=== PATIENT | female | born 1965 | race Caucasian/White ===

== ENCOUNTER → 2017-05-14 | Outpatient (CLI) | payer BC ==
--- NOTE | 2017-05-15 09:11 | WWHP ---
CHIEF COMPLAINT: The patient is here for her routine gynecologic exam. HPI: This is a 52-year-old, G0 with LMP of 2010. She is status post laparoscopic supracervical hysterectomy in 2010 for endometriosis and uterine fibroids. She had one ovary removed at the time of the hysterectomy and the other ovary prior to the hysterectomy. The hysterectomy was benign. The patient is without gynecologic complaints and denies any postmenopausal bleeding. She states she has always had problems having PAP smears done because of discomfort. PAST MEDICAL HISTORY: Type 2 diabetes, arthritis, fatty liver and sphincter of Oddi dysfunction. Dr. Dixon is her primary care physician. MEDICATIONS: Glucophage 500 mg b.i.d., meloxicam 1 daily, hyoscyamine q.i.d. p.r.n. ALLERGIES: No known drug allergies. PAST SURGICAL HISTORY: Multiple laparotomies for endometriosis, unilateral oophorectomy by laparotomy, laparoscopic supracervical hysterectomy with unilateral oophorectomy in 2010. Colonoscopy in 2016 and this was her second one. PAST [employer] HISTORY: She has a long history of infertility and endometriosis. She also had uterine fibroids and polycystic ovarian syndrome. She is status post laparoscopic supracervical hysterectomy in 2010 and she has had bilateral oophorectomies performed on two separate occasions. SOCIAL HISTORY: She denies tobacco, alcohol and drug use. She has five adopted children. She works as a teachers aid and recess aid at [employer] FAMILY HISTORY: Father had MT, mother had type 2 diabetes and lung cancer. Grandmother had diabetes and uncles have had heart disease. REVIEW OF SYSTEMS: Weight has been stable. She denies respiratory or cardiac problems. She has had GI problems associated with her sphincter of Oddi dysfunction. PHYSICAL EXAM: Blood pressure 144/85, height 5 feet 10 inches, weight 275 pounds. Temperature 98.9, pulse 107. This is a well developed, obese white female who is alert and oriented x3 in no acute distress. HEENT is within normal limits. Neck is supple without mass or thyromegaly. Chest and lungs clear to auscultation. HEART: Mild tachycardia. Breasts are without mass or discharge. Axillary exam is negative for adenopathy. Back negative for cva tenderness. Abdomen is obese, soft, nontender without palpable masses. Pelvic Exam: External genitalia appears normal with minimal atrophy. Vaginal exam is limited since I was unable to insert the speculum beyond about 10 cm because of the patient's discomfort. The narrow Grave's speculum could not reach the cervix without the patient having discomfort. Small ( ) speculum was inserted entirely, but was not long enough to reach the cervix as well. PAP smear was taken from the back fo the vagina blindly since the cervix could not visualized. Bimanual examination was negative for mass or tenderness. There were no vaginal masses. The patient has a long vagina and no cervix was palpable. Rectovaginal exam was negative for mass or tenderness and is negative for occult blood. Extremities nontender. IMPRESSION: 1. A 52-year-old surgically menopausal female status post laparoscopic supracervical hysterectomy and bilateral oophorectomy. 2. Limited pelvic exam since I was unable to visualize her cervix because of discomfort with the speculum examination. She states she has been this way throughout her entire life and several doctors have had difficulty obtaining a PAP smear. 3. There are no visible abnormalities or palpable abnormalities on the limited pelvic examination. PLAN: 1. PAP smear was taken, but as above this was done blindly. 2. Self breast examination was discussed. 3. Mammogram is due and slip was given to the patient for this. 4. Osteoporosis prevention was discussed. 5. I have discussed with the patient the limitations of the examination. At this time i do not feel doing an examination under anesthesia is necessary; however, if abnormalities are noted on the PAP smear we can consider these types of options. 6. She will return in one year and p.r.n. EVA
== END | disposition home or self-care (01) ==
LOC: WWCWWP 10:34
PROVIDERS: ATTEND Obstetrics & Gynecology
DX: Z53.9 Procedure and treatment not carried out, unspecified reason (principal)

== ENCOUNTER → 2017-05-28 | Outpatient (CLI) | payer BC ==
--- NOTE | 2017-05-30 10:05 | MM ---
Reason for exam: screening (asymptomatic). Last mammogram was performed 2 years and 2 months ago. History: Patient is postmenopausal and is nulliparous. Taking estrogen for 1 year. Taking progesterone for 3 years 10 months beginning at age 42. Physical Findings: A clinical breast exam by your physician is recommended on an annual basis and results should be correlated with mammographic findings. MG Screening Mammo w CAD Bilateral CC and MLO view(s) were taken. Prior study comparison: April 01, 2015, bilateral MG screening mammo w CAD. June 08, 2014, bilateral MG screening mammo w CAD. March 04, 2013, bilateral digital screening mammo w/CAD. December 14, 2010, bilateral digital screening mammo w/CAD. The breast tissue is heterogeneously dense. This may lower the sensitivity of mammography. Scattered asymmetries are unchanged. No significant changes when compared with prior studies. ASSESSMENT: Negative, BI-RAD 1 RECOMMENDATION: Routine screening mammogram of both breasts in 1 year.
== END | disposition home or self-care (01) ==
LOC: RADMAMWWP 08:13
PROVIDERS: ATTEND Obstetrics & Gynecology
DX: Z12.31 Encounter for screening mammogram for malignant neoplasm of breast (principal)

== ENCOUNTER 2018-11-13 14:02 | Emergency (ER) | payer BC, OTHER ==
[2018-11-13 14:13] VITALS: RESP 18; TEMP 98.8
--- NOTE | 2018-11-13 14:37 | ED ---
General Adult HPI - General Chief complaint: Extremity Injury, Lower Stated complaint: IHS - left knee pain Time Seen by Provider: 11/13/18 14:12 Source: patient, RN notes reviewed, old records reviewed Mode of arrival: ambulatory Limitations: no limitations - History of Present Illness Initial comments: 53-year-old female patient with past medical history of type 2 diabetes presents to ED after sustaining a mechanical fall at work. Patient reports that she tripped over an outstretched leg and fell forward. Patient reports that she caught herself with her arms however sustained a trauma to her left knee. Patient reports that her knee was partially flexed when she fell to the ground. Patient primary complaint is left knee pain. Patient is ambulatory with pain in left knee. Patient denies any trauma to head and neck. Patient denies any use of blood thinners. Patient denies loss of consciousness. Patient denies any other complaints. Systemic: Pt denies fatigue, myalgia, fever/chills, rash. Pt denies weakness, night sweats, weight loss. Neuro: Pt denies headache, visual disturbances, syncope or pre-syncope. HEENT: Pt denies ocular discharge or irritation, otalgia, rhinorrhea, pharyngitis or notable lymphadenopathy. Cardiopulmonary: Pt denies chest pain, SOB, heart palpitations, dyspnea on exertion. Abdominal/GI: Pt denies abdominal pain, n/v/d. : Pt denies dysuria, burning w/ urination, frequency/urgency. Denies new onset urinary or bowel incontinence. MSK: Pt denies myalgia, loss of strength or function in extremities. Neuro: Pt denies new onset weakness, paresthesias. - Related Data Allergies Allergy/AdvReac Type Severity Reaction Status Date / Time No Known Allergies Allergy Verified 11/13/18 14:08 Review of Systems ROS Statement: Those systems with pertinent positive or pertinent negative responses have been documented in the HPI. ROS Other: All systems not noted in ROS Statement are negative. Past Medical History Past Medical History: GERD/Reflux History of Any Multi-Drug Resistant Organisms: None Reported Past Surgical History: Cholecystectomy, Hysterectomy Additional Past Surgical History / Comment(s): eye surgery, oophrectomy, complete hysterectomy Smoking Status: Never smoker Past Alcohol Use History: Rare Past Drug Use History: None Reported General Exam - General Exam Comments Initial Comments: Constitutional: NAD, AOX3, Pt has pleasant affect. HEENT: NC/AT, trachea midline, neck supple, no lymphadenopathy. Posterior pharynx non erythematous, without exudates. External ears appear normal, without discharge. Mucous membranes moist. Eyes PERRLA, EOM intact. There is no scleral icterus. No pallor noted. Cardiopulmonary: RRR, no murmurs, rubs or gallops, no JVD noted. Lungs CTAB in anterior and posterior contreras. No peripheral edema. Abdominal exam: Abdomen soft and non-distended. Abdomen non-tender to palpation in all 4 quadrants. Bowel sounds active in LLQ. No hepatosplenomegaly. No ecchymosis Neuro: CN II-XII intact. No nuchal rigidity. No focal deificit or facial droop. MSK: Psoas and quadriceps strength 5/5 bilaterally. Sensation intact. Posterior tibialis and dorsalis pedis pulse +2 bilaterally. Pt has mild tenderness to palpation over distal fibula. Pt knee is nontender to palpation. No cervical spinal tenderness. Thoracic and lumbar spine nontender to palpation. Para cervical, thoracic and lumbar non tender to palpation. No posterior calf tenderness bilaterally, homans sign negative bilaterally. Posterior tibialis and radial pulse +2 bilaterally. Sensation intact in upper and lower extremities. Full active ROM in upper and lower extremities, 5/5 stregnth. Limitations: no limitations Course Vital Signs 11/13/18 14:08 Temperature 98.8 F Pulse Rate 100 Respiratory 18 Rate Blood Pressure 161/84 O2 Sat by Pulse 95 Oximetry Medical Decision Making - Medical Decision Making 53-year-old female patient with past medical history of type 2 diabetes presents to ED after sustaining a mechanical fall at work. Pt fell forward, caught herself with her arms however sustained a trauma to her left knee. Patient reports that her knee was partially flexed when she fell to the ground. Patient primary complaint is left knee pain. Patient is ambulatory with pain in left knee. Patient denies any trauma to head and neck. Patient denies any use of blood thinners. Patient denies any other complaints. Pt VSS. Physical exam displayed: Psoas and quadriceps strength 5/5 bilaterally. Sensation intact. Posterior tibialis and dorsalis pedis pulse +2 bilaterally. Pt has mild tenderness to palpation over distal fibula. Pt knee is nontender to palpation. No cervical spinal tenderness. Thoracic and lumbar spine nontender to palpation. Para cervical, thoracic and lumbar non tender to palpation. No posterior calf tenderness bilaterally, homans sign negative bilaterally. Posterior tibialis and radial pulse +2 bilaterally. Sensation intact in upper and lower extremities. Full active ROM in upper and lower extremities, 5/5 stregnth. Plain film of left knee and left tibia/fibula displayed medial patellofemoral compartment osteoarthritis. There is a small 6 mm wide focal concavity of the subchondral bone of the medial femoral condyle could represent a tiny insufficiency fracture osteochondral lesion. No other acute osseous abnormality seen in the L tibia/fibula. Findings explained to patient at length. Patient to be placed and left knee immobilizer and nonweightbearing until follow-up with orthopedics. Patient prescribed crutches. Patient to follow up with orthopedic surgery care physician in one to 2 days. Pain well controlled in ED with toradol. Patient denied need for outpatient analgesics, states that she will take Motrin at home if necessary. Patient to return to ED if condition worsens in any way. Case discussed at length with Dr. Silvestre. Disposition Clinical Impression: Knee pain, Knee contusion Disposition: HOME SELF-CARE Condition: Stable Instructions: Knee Pain (ED) Additional Instructions: Patient to adhere to previously discussed treatment plan and will take medication(s) as directed. Patient to follow up with PCP in 1-2 days. Patient to return to ED if symptoms do not improve. Is patient prescribed a controlled substance at d/c from ED?: No Referrals: Toño Dixon MD [Primary Care Provider] - 1-2 days Shaheen Troncoso MD [STAFF PHYSICIAN] - 1-2 days Time of Disposition: 15:38
[2018-11-13] MEDS ORDERED: KETOROLAC 60 MG/2 ML VIAL IM STA (15:06)
--- NOTE | 2018-11-13 15:09 | XR ---
EXAMINATION TYPE: XR knee 4V LT, XR tibia fibula 2 views LT DATE OF EXAM: 11/13/2018 COMPARISON: NONE HISTORY: 53 year-old female left knee pain after fall FINDINGS: Left knee: Small knee joint effusion. Extensor mechanism is intact. Mild degenerative spurring patellofemoral co mpartment and additional degenerative spurring in the medial compartment. There is a small 6 mm wide area of focal concavity along the mid peripheral aspect of the medial femoral condyle. Otherwise, no other acute fracture, subluxation, or dislocation is seen. Left tibia/fibula: No acute fracture or dislocation. Os trigonum incidentally noted posterior ankle along with a moderat e-sized plantar calcaneal spur. IMPRESSION: 1. Left knee: Medial and patellofemoral compartment osteoarthrosis. There is a small 6 mm wide focal concavity of the subchondral bone of the medial femoral condyle that could represent a tiny insuffici ency fracture or osteochondral lesion. No other acute osseous abnormality seen. MRI if indicated. 2. Left tibia/fibula: No acute osseous abnormality seen.
[2018-11-13 15:59] VITALS: BP 143/80; PULSE 92
== END 2018-11-13 15:57 | disposition home or self-care (01) ==
LOC: EC 14:02
DX: S80.02XA Contusion of left knee, initial encounter (principal); M17.12 Unilateral primary osteoarthritis, left knee; E11.9 Type 2 diabetes mellitus without complications; W19.XXXA Unspecified fall, initial encounter; Y92.69 Other specified industrial and construction area as the place of occurrence of the external cause; Y99.0 Civilian activity done for income or pay
CPT/HCPCS: 73590; 73564; 99284; 96372; L1830 ×2; J1885

== ENCOUNTER → 2018-11-17 | Outpatient (CLI) | payer OTHER ==
--- NOTE | 2018-11-17 20:18 | XR ---
PROCEDURE: XR thoracic spine complete - 4V DATE AND TIME: 11/17/2018 7:36 PM CLINICAL INDICATION: PHH; FALL TECHNIQUE: Department protocol COMPARISON: None FINDINGS: Lower thoracic dextrocurvature noted, this could be positional. There is no fracture or malalignment. The soft tissues are unremarkable. IMPRESSION: NO ACUTE PROCESS.
--- NOTE | 2018-11-17 20:31 | XR ---
PROCEDURE: XR cervical spine comp - 5V DATE AND TIME: 11/17/2018 7:30 PM CLINICAL INDICATION: PHH; FALL TECHNIQUE: Department protocol COMPARISON: None FINDINGS: There is no fracture or malalignment. Prominent multilevel cervical spondylosis changes are noted. The soft tissues are unremarkable. IMPRESSION: NO ACUTE PROCESS.
== END | disposition home or self-care (01) ==
LOC: RADXRMAIN 19:06
PROVIDERS: ATTEND Family Medicine
DX: S13.4XXA Sprain of ligaments of cervical spine, initial encounter (principal); S23.3XXA Sprain of ligaments of thoracic spine, initial encounter
CPT/HCPCS: 72050; 72072

== ENCOUNTER → 2019-05-19 | Outpatient (CLI) | payer BC ==
--- NOTE | 2019-05-19 22:30 | CONS ---
CONSULTATION REASON FOR CONSULTATION: Sleep apnea. This is a 54-year-old obese female patient who is coming in with symptoms of loud snoring, witnessed apneas, sleep fragmentation and chronic hypersomnia and sleepiness. The patient is also having episodes where she wakes up gasping for air. She has been going to bed around 9 p.m., waking up at 7:30 a.m. in the morning. She is somnolent and sleepy during the day. Her current [place] Score is 16. She has not fallen asleep while driving, nor has she been involved in a motor vehicle accident because of feeling drowsy or sleepy. She drinks coffee, 2 cups in the morning. Her weight is up on the order of 80 pounds over the past 5 years at least. She is coming in for sleep apnea evaluation. Her has obstructive sleep apnea. He utilizes a CPAP unit. PAST MEDICAL HISTORY: 1. Diabetes mellitus. 2. Obesity. 3. Acid reflux. PAST SURGICAL HISTORY: 1. Eye surgery. 2. Surgery for meniscal repair. 3. Cholecystectomy. 4. Hysterectomy. DRUG ALLERGIES: NOT KNOWN. OUTPATIENT MEDICATION: 1. Metformin. 2. Wellbutrin. 3. Omeprazole. 4. Magnesium citrate. SOCIAL HISTORY: Nonsmoker. No history of alcoholism. No history of IV drugs. FAMILY HISTORY: Negative for sleep apnea. REVIEW OF SYSTEMS: Fourteen-point review of systems was done and the positive findings are all mentioned above in the history of present illness. No sleep paralysis. No hallucinations. No cataplexy. No insomnia. No nocturia. No grinding of the teeth. No panic attacks. No palpitation. No heartburn. No sleepwalking or sleeptalking. No claustrophobia. No anxiety. No sexual dysfunction. No depression. PHYSICAL EXAMINATION: VITAL SIGNS: BP is 158/81, pulse 101, respirations 16, temperature 98.2, saturation 98% on room air. Neck size is 18 inches. [place] score is 16. BMI 47.4. GENERAL APPEARANCE: Calm, comfortable. Head is atraumatic, normocephalic. NECK: Supple. There is no JVD. No goiter or neck masses. Mallampati class IV. LUNGS: Clear to auscultation. HEART: Heart sounds are regular rate and rhythm. Normal S1, S2. No S3, S4. No murmurs. ABDOMEN: Soft, nontender. No organomegaly. EXTREMITIES: No edema. No cyanosis or clubbing. Neurologically the patient is awake and alert, in no focal neurological deficits. IMPRESSION: 1. Hypersomnia; Rich[place] score of 16. Clinical features are very much suggestive of obstructive sleep apnea. The patient has loud snoring witnessed apneas and sleep fragmentation. 2. Obesity with a body mass index of 47.4. 3. Diabetes mellitus. 4. Acid reflux. PLAN: High clinical suspicion for obstructive sleep apnea. Proceed with a home sleep study and treatment is to follow accordingly. Encourage weight loss. Optimize sleep hygiene measures. Will continue to follow. MMODL / IJN: [id number] /
== END | disposition home or self-care (01) ==
LOC: SLEEP 16:29
PROVIDERS: ATTEND Internal Medicine Critical Care Medicine
DX: G47.10 Hypersomnia, unspecified (principal); E66.9 Obesity, unspecified; E11.9 Type 2 diabetes mellitus without complications; K21.9 Gastro-esophageal reflux disease without esophagitis; Z68.42 Body mass index [BMI] 45.0-49.9, adult; Z79.84 Long term (current) use of oral hypoglycemic drugs; Z79.899 Other long term (current) drug therapy
CPT/HCPCS: 99211

== ENCOUNTER → 2019-07-27 | Outpatient (CLI) | payer BC ==
--- NOTE | 2019-07-27 22:30 | MR ---
EXAMINATION TYPE: MR knee RT wo con DATE OF EXAM: 07/27/2019 COMPARISON: Outside right knee x-ray June 22, 2019. HISTORY: Rt knee pain/injury 3 mos ago TECHNIQUE: Multiplanar, multisequence images of the knee is performed without IV contrast. FINDINGS: Exam slightly suboptimal due to patient's large body habitus. MEDIAL MENISCUS: Anterior and posterior horns are intact without tear. LATERAL MENISCUS: Anterior and posterior horns are intact without tear. CRUCIATE LIGAMENTS: The anterior and posterior cruciate ligaments are intact and unremarkable. COLLATERAL LIGAMENTS: The medial collateral ligament and lateral collateral ligament complex are inta ct and unremarkable. EXTENSOR MECHANISM: Visualized quadriceps and patellar tendons are intact. EFFUSION: No significant suprapatellar joint effusion. POPLITEAL CYST: There is small popliteal/zamarripa cyst. TRICOMPARTMENT SPACES: Mild to moderate tricompartment joint space loss with mild spurring. CARTILAGE: Some thinning of articular cartilage medial tibial femoral compartment. BONE MARROW SIGNAL: No focal abnormal marrow signal is appreciated. OTHER: Increased edema superficial infrapatellar space.. IMPRESSION: No meniscal or ligamentous tear is seen. Mild to moderate tricompartment degenerative luann nges with small popliteal cyst.
== END | disposition home or self-care (01) ==
LOC: RADMRIMAIN 20:18
PROVIDERS: ATTEND Orthopaedic Surgery
DX: M17.11 Unilateral primary osteoarthritis, right knee (principal); M71.21 Synovial cyst of popliteal space [Baker], right knee

== ENCOUNTER → 2019-08-11 | Outpatient (CLI) | payer BC ==
--- NOTE | 2019-08-11 18:47 | PN ---
PROGRESS NOTE A 54-year-old female patient diagnosed having severe obstructive sleep apnea with an AHI of 103. She came in with excessive sleepiness and tiredness and she underwent a home sleep study that confirmed the findings. She was also having severe nocturnal oxygen desaturation where her pulse ox was dropping more than 90%. More than 50% of the time. As such, the patient was given APap and today she is coming in for a compliancy check. She notes marked improvement in her symptoms in general. She is benefiting from the treatment. She was feeling much more refreshed and alert during the day. She loves her machine. [place] score is down to 3. Based on the compliance data, the patient has used her APAP machine every night over the past 30 days. She has achieved 5.3 hours of APAP use per night and average pressure is at 17.9, AHI is down to 2.9. Leak is at 7 L/minute. Her blood pressure is under better control for now. She feels better in general. She is committed to lose weight. She has severe symptomatic obstructive sleep apnea. REVIEW OF SYSTEMS: Fourteen-point review of system was done. Positive findings are mentioned as above in the history of present illness. Overall condition is improving and the patient is improving and becoming much more alert and her sleep quality is also improving. She is currently using an AmaraView full-face mask. PHYSICAL EXAMINATION: Her BP is 152/94, pulse 102, respirations 16, temperature 97.0, saturation 99% on room air. Weight is 297 which is 6 pounds less compaired to her weight last month. General appearance: Calm, comfortable, obese. Head is traumatic, normocephalic. NECK: Supple. There is no JVD. No goiter or neck masses. LUNGS: Clear to auscultation. HEART: Heart sounds are regular rate and rhythm. Normal S1, S2. No S3. No murmurs. ABDOMEN: Soft, nontender. No organomegaly. EXTREMITIES: No edema. No cyanosis or clubbing. NEUROLOGIC: She is awake, alert, and no focal neurological deficits. PSYCHIATRIC: Negative for anxiety or depression. SKIN is negative for any wounds or ulceration. IMPRESSION: 1. Severe symptomatic obstructive sleep apnea with an AHI of 103. 2. Severe nocturnal oxygen desaturation. 3. Chronic hypersomnia improved with APAP therapy. [place] score is down to 3. 4. Morbid obesity. BMI of 47. 5. Diabetes. 6. Acid reflux. PLAN: 1. Continue APAP treatment. Minimum of 5, maximum of 20. The patient's average pressure is at 17. 2. The patient is using an Ebonie view full-face mask. Alternative masks and this can be considered F30 AirFit and the DreamWear under the nose and samples of both were given small size. 3. Encourage weight loss. 4. Implement good sleep hygiene measures. 5. See me back in a year's time in followup, earlier if needed. Treatment is successful for now. MMODL / IJN: [id number] /
== END | disposition home or self-care (01) ==
LOC: SLEEP 16:12
PROVIDERS: ATTEND Internal Medicine Critical Care Medicine
DX: G47.33 Obstructive sleep apnea (adult) (pediatric) (principal); E66.01 Morbid (severe) obesity due to excess calories; Z68.42 Body mass index [BMI] 45.0-49.9, adult; E11.9 Type 2 diabetes mellitus without complications; K21.9 Gastro-esophageal reflux disease without esophagitis; R53.83 Other fatigue; Z99.89 Dependence on other enabling machines and devices

== ENCOUNTER → 2019-08-12 | Outpatient (CLI) | payer BC ==
[2019-08-12 16:47] LABS: Basophils # (A) 0.1 k/uL (0-0.2); Basophils % (A) 1 %; Eosinophils # (A) 0.1 k/uL (0-0.7); Eosinophils % (A) 1 %; HCT 37.6 % (34.0-46.0); Hypochromasia Moderate; Lymphocytes # (A) 1.5 k/uL (1.0-4.8); Lymphocytes % (A) 22 %; MCHC 31.9 g/dL (31.0-37.0); MCV 78.4 fL (80.0-100.0); Mean Platelet Volume 6.8; Monocytes # (A) 0.5 k/uL (0-1.0); Monocytes % (A) 7 %; Neutrophils # (A) 4.6 k/uL (1.3-7.7); Neutrophils % (A) 66 %; Platelet Count 299 k/uL (150-450); RDW 15.9 % (11.5-15.5); WBC 6.9 k/uL (3.8-10.6)
== END | disposition home or self-care (01) ==
LOC: LABWHC1 14:20
PROVIDERS: ATTEND Orthopaedic Surgery
DX: Z01.818 Encounter for other preprocedural examination (principal); Z01.812 Encounter for preprocedural laboratory examination; M23.91 Unspecified internal derangement of right knee
CPT/HCPCS: 85025; 93005

== ENCOUNTER 2019-08-14 07:08 | Day surgery (SDC) | payer BC ==
[2019-08-13 08:49] VITALS: BMI 43.8
--- NOTE | 2019-08-13 10:51 | HP ---
HISTORY AND PHYSICAL CHIEF COMPLAINT: Right knee pain. 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 She notes giving way along with anterior and medial pain with swelling. She has increased pain with prolonged weightbearing activities. She has tried anti-inflammatories in addition to a previous injection with only partial temporary relief. PAST MEDICAL HISTORY: Significant for depression, type 2 diabetes, and hypertension. PAST SURGICAL HISTORY: Significant for previous left knee arthroscopy. CURRENT MEDICATIONS: 1. Celexa. 2. Glucophage. 3. Omeprazole. 4. Wellbutrin. ALLERGIES: She denies drug allergies. FAMILY HISTORY: Significant for heart disease and cancer. SOCIAL HISTORY: Negative for current tobacco or alcohol use. REVIEW OF SYSTEMS: Sixteen-point review of systems otherwise reviewed and is noncontributory. PHYSICAL EXAMINATION: On examination, the patient is approximately 5 feet 9 inches, 300 pounds of endomorphic habitus. HEENT exam is nonfocal. Neck is supple. She has painless passive motion of the right hip. Straight leg raise is negative. Active motion right knee -8 to 105 degrees of flexion. She has a mild effusion. She is tender about the medial and lateral joint line. Collaterals are stable, Myke is negative, and Constance's elicits medial pain. Her distal neurovascular exam appears intact in the right lower extremity. MRI report 07/27/2019 shows evidence of increased signal involving the posterior horn of the medial meniscus along with [id number] tricompartmental osteoarthrosis. IMPRESSION: 1. Right knee internal derangement with possible medial meniscal tear. 2. Right knee [id number] tricompartmental osteoarthrosis. 3. Obesity. RECOMMENDATIONS: I talked to the patient at length regarding her condition along with treatment options. At this point, she is having persistent pain and mechanical symptoms that limit her despite conservative measures. After thorough discussion, she opts to proceed with surgery. We will plan to proceed with right knee arthroscopic evaluation with possible partial medial meniscectomy versus medial femoral chondrectomy. Risks and benefits were discussed at length in layman's terms. We will likely perform that as an outpatient procedure. MMODL / IJN: [id number] /
[~2019-08-14 07:08] MED LIST: DEXAMETHASONE SOD PHOSPHATE 10 MG/ML 1 ML VIAL IV ONE; FAMOTIDINE 20 MG/2 ML VIAL IV PRN; LACTATED RINGERS 1,000 ML IV SCH; MIDAZOLAM 2 MG/2 ML VIAL IV PRN; ONDANSETRON 4 MG/2 ML VIAL IVP PRN; ceFAZolin 3 GM in SODIUM CHLORIDE 0.9% 100 ML IVPB ONE
[2019-08-14] MEDS ORDERED: LIDOCAINE 1% 20 ML VIAL (10MG/ML) FOR IV START INTRADERMA ONE (07:35)
[2019-08-14] MEDS ORDERED: SCOPOLAMINE 1.5MG/72HR PATCH TRANSDERM ONE (07:39)
[2019-08-14 07:41] LABS: Glucose,Whole Blood 91 mg/dL (75-99)
[2019-08-14] MEDS ORDERED: MIDAZOLAM 2 MG/2 ML VIAL ONE (08:10)
[2019-08-14] MEDS ORDERED: PHENYLEPHRINE-0.9% NACL SYG 1 MG/10 ML SYRINGE ONE (08:10)
[2019-08-14] MEDS ORDERED: LIDOCAINE 1% INJ 10MG/ML (20 ML MDV) ONE (08:10)
[2019-08-14] MEDS ORDERED: SUCCINYLCHOLINE CHLORIDE 100 MG/5 ML SYR IV ONE (08:10)
[2019-08-14] MEDS ORDERED: PROPOFOL 10 MG/ML 20 ML VIAL IV ONE (08:10)
[2019-08-14] MEDS ORDERED: fentaNYL (PF) 50 MCG/ML 2 ML AMP ONE (08:10)
[2019-08-14] MEDS ORDERED: ceFAZolin 1,000 MG VIAL IVPB ONE (08:15)
[2019-08-14] MEDS ORDERED: EPINEPHrine (PF) 1 ML in SODIUM CHLORIDE 0.9% IRRIGATIO 3,000 ML IRRIGATION ONE (08:36)
--- NOTE | 2019-08-14 09:03 | P.OP ---
Date of Procedure: 08/14/19 Preoperative Diagnosis: Right knee internal derangement Postoperative Diagnosis: Right knee posterior medial meniscal tear/grade 3 chondral injury distal medial femoral condyle Procedure(s) Performed: Right knee arthroscopic partial medial meniscectomy/medial femoral chondrectomy/microfracture medial femoral condyle Anesthesia: SERGEYA Surgeon: Shaheen Troncoso Estimated Blood Loss (ml): 10 Pathology: none sent Condition: stable Disposition: PACU Indications for Procedure: The patient's 54-year-old female who presents with progressive right knee pain and mechanical symptoms despite conservative measures. A discussion of the risks and benefits of operative intervention versus continued conservative measures was made with the patient. She opted to proceed with surgery. Operative risks to include infection, neurovascular injury, development of blood clots, possible incomplete resolution of symptoms, possible worsening symptoms and need for subsequent procedures was discussed. Informed consent was obtained. Operative Findings: As below Description of Procedure: The patient was brought to the operating room, and after induction of general anesthesia examined the right knee. Collaterals were stable, Myke was negative, and posterior drawer was negative. The right lower extremity was prepped and draped in a normal fashion. A lateral portal was made through a 5 mm vertical skin incision lateral to the patella tendon above the joint line. Diagnostic arthroscopy was performed. On inspection of the medial compartment, and oblique tear involving the posterior horn of the medial meniscus in the white-red junction was noted. This was debrided back to stable base with straight baskets and a motorized shaver. A corresponding grade 3 chondral injury was noted involving the distal medial femoral condyle. There was a loose chondral fragment debrided back to stable base with a motorized shaver. Microfracture was performed with a chondral all breeching the subchondral surface down to the bone marrow elements. On inspection of the notch, the anterior cruciate ligament appeared to be intact. On inspection of the lateral compartment no significant meniscal or cartilage pathology was noted. On inspection of the patellofemoral articulation there was chondral fibrillation however no loose chondral fragments.. The gutters were clear debris. The knee was then thoroughly irrigated. The portals were closed with Steri-Strips. A sterile dressing was applied in addition to a compression stocking. The patient was awoken from general anesthesia and transferred to recovery room in good condition. Blood loss was estimated at 10 mL. No complications were incurred.
[2019-08-14 09:16] VITALS: TEMP 97
[2019-08-14] MEDS: HYDROmorphone 0.5 MG/0.5 ML SYRINGE IVP PRN ×2 (09:20→09:30)
[2019-08-14 09:37] VITALS: RESP 16
[2019-08-14 10:06] LABS: Glucose,Whole Blood 107 mg/dL (75-99)
[2019-08-14] MEDS ORDERED: HYDROcodone/APAP 5-325MG 1 EACH TAB PO ONE (10:21)
[2019-08-14 10:51] VITALS: BP 131/79; PULSE 98
== END 2019-08-14 11:21 | disposition home or self-care (01) ==
LOC: OR 07:08
PROVIDERS: ATTEND Orthopaedic Surgery
DX: S83.241A Other tear of medial meniscus, current injury, right knee, initial encounter (principal); S83.31XA Tear of articular cartilage of right knee, current, initial encounter; X58.XXXA Exposure to other specified factors, initial encounter; M17.11 Unilateral primary osteoarthritis, right knee; E66.01 Morbid (severe) obesity due to excess calories; Z68.41 Body mass index [BMI] 40.0-44.9, adult; K21.9 Gastro-esophageal reflux disease without esophagitis; I10 Essential (primary) hypertension; G25.81 Restless legs syndrome; F32.9 Major depressive disorder, single episode, unspecified; E11.9 Type 2 diabetes mellitus without complications; G47.33 Obstructive sleep apnea (adult) (pediatric); Z82.49 Family history of ischemic heart disease and other diseases of the circulatory system; Z79.84 Long term (current) use of oral hypoglycemic drugs; Z79.899 Other long term (current) drug therapy
CPT/HCPCS: 29881; 29879; J2250; J1100; J0690; J0171; J2001; J3010; J2370; J0330; J2704; J1170

== ENCOUNTER → 2019-08-27 | Outpatient (CLI) | payer BC ==
--- NOTE | 2019-08-28 13:40 | MM ---
Reason for exam: screening (asymptomatic). Last mammogram was performed 2 years and 3 months ago. History: Patient is postmenopausal and is nulliparous. Taking estrogen for 1 year. Taking progesterone for 3 years 10 months beginning at age 42. Physical Findings: A clinical breast exam by your physician is recommended on an annual basis and results should be correlated with mammographic findings. MG 3D Screening Mammo W/Cad Bilateral CC, MLO, and XCCL view(s) were taken. Prior study comparison: May 28, 2017, bilateral MG screening mammo w CAD. April 01, 2015, bilateral MG screening mammo w CAD. The breast tissue is heterogeneously dense. This may lower the sensitivity of mammography. No significant changes when compared with prior studies. ASSESSMENT: Benign, BI-RAD 2 RECOMMENDATION: Routine screening mammogram of both breasts in 1 year.
== END | disposition home or self-care (01) ==
LOC: RADMAMWWP 16:28
PROVIDERS: ATTEND Family Medicine
DX: Z12.31 Encounter for screening mammogram for malignant neoplasm of breast (principal)
CPT/HCPCS: 77063; 77067

== ENCOUNTER → 2020-06-29 | Outpatient (CLI) | payer BC ==
--- NOTE | 2020-06-29 09:54 | US ---
EXAMINATION TYPE: US abdomen complete DATE OF EXAM: 06/29/2020 COMPARISON: NONE CLINICAL HISTORY: R94.5 Abnormal liver function test, R10.11. RUQ pain, elevated liver enzymes, godwin cystectomy EXAM MEASUREMENTS: Liver Length: 19.1 cm Gallbladder Wall: Surgically absent CBD: 0.9 cm Spleen: 12.3 cm Right Kidney: 11.9 x 4.5 x 5.4 cm Left Kidney: 13.0 x 5.0 x 4.7 cm Technical limitations due to patient's body habitus and large amount of overlying bowel content Pancreas: Obscured by bowel gas Liver: enlarged, attenuating, hypoechoic area noted = 3.7 x 2.7 x 3.6cm probable focal sparing Gallbladder: Surgically absent Evidence for sonographic Mcrae's sign: no CBD: appears wnl Spleen: appears wnl Right Kidney: no evidence of hydronephrosis Left Kidney: no evidence of hydronephrosis Upper IVC: wnl Abd Aorta: Obscured by overlying bowel gas The intrahepatic portion of the IVC and proximal abdominal aorta are within normal limits. Common bi le duct is unremarkable. The visualized portions of the pancreas are homogenous. The spleen is unre markable. Kidneys are symmetric and free of hydronephrosis. No renal lesions are seen. IMPRESSION: 1. Fatty liver with areas of focal fatty sparing.
== END | disposition home or self-care (01) ==
LOC: RADUSWWP 09:03
PROVIDERS: ATTEND Surgery Plastic and Reconstructive Surgery
DX: K76.0 Fatty (change of) liver, not elsewhere classified (principal)
CPT/HCPCS: 76700

== ENCOUNTER → 2024-05-22 | Outpatient (CLI) | payer BC ==
--- NOTE | 2024-05-27 06:19 | MR ---
EXAMINATION TYPE: MR hip LT wo con DATE OF EXAM: 05/22/2024 COMPARISON: Outside pelvic x-ray May 11, 2024 HISTORY: Left hip pain. Standard multiplanar, multisequence MRI departmental protocol Multiplanar, multisequence images of the pelvis focusing on the left hip were acquired without contra st. FINDINGS: Moderate narrowing in the right hip joint. There is more severe narrowing in the left hip j oint. Asymmetric moderate to large sized left hip joint effusion is seen. Loss of spherical shape to the left femoral head with serpiginous diminished T1 signal involving the left femoral head. Early he ight loss involving the superior aspect of left femoral head is noted. There is increased T2 signal i nvolving the proximal femur particularly the lateral head and femoral neck region. No groin hernia or adenopathy seen. Muscle bulk is maintained bilaterally. Urinary bladder appears within normal limits. Sigmoid colonic diverticula are seen. Uterus is presume d surgically absent. IMPRESSION: Advanced degenerative changes and MRI evidence of avascular necrosis in the left hip as detailed treasure rosas
== END | disposition home or self-care (01) ==
LOC: RADMRIMAIN 10:51
PROVIDERS: ATTEND Orthopaedic Surgery
DX: M16.12 Unilateral primary osteoarthritis, left hip (principal); M87.88 Other osteonecrosis, other site

== ENCOUNTER → 2024-08-10 | Outpatient (CLI) | payer BC | END | disposition home or self-care (01) | LOC: LABPAT 14:09 | PROVIDERS: ATTEND Orthopaedic Surgery | DX: Z01.812 Encounter for preprocedural laboratory examination (principal); M16.12 Unilateral primary osteoarthritis, left hip; Z22.322 Carrier or suspected carrier of Methicillin resistant Staphylococcus aureus | CPT/HCPCS: 36415; 86850; 86900; 86901; 87070 ==

== ENCOUNTER 2024-08-12 10:18 | Day surgery (SDC) | payer BC ==
[2024-08-06 14:33] VITALS: BMI 46.5
--- NOTE | 2024-08-10 08:31 | P.HPOR ---
History of Present Illness H&P Date: 08/10/24 Chief Complaint: Left hip pain The patient is a 59-year-old female who presents with increasing left hip pain for the past 6 months. She notes now she has a difficult time putting any weight on it. She has groin and thigh pain. She is having night symptoms. She tried therapy without any real relief. She's been taking [place] and Naprosyn. Review of Systems Per HPI Past Medical History Past Medical History: Blood Disorder, COPD, GERD/Reflux, GI Bleed, Hearing Disorder / Deafness, Hypertension, Osteoarthritis (OA), Pneumonia, Sleep Apnea/CPAP/BIPAP Additional Past Medical History / Comment(s): Current congestion from a cold. Hx Covid, chronic Pneumonia. 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 Iron Deficiency Anemia. "I have always been anemic but in Jun 2024 hemoglobin was 4.8, had 4 blood transfusions and an iron infusion, discovered I had a bleeding stomach ulcer due to taking Naproxen". Hx hypertension before adrenal gland was removed. CPAP use. Mild hearing loss. History of Any Multi-Drug Resistant Organisms: None Reported Past Surgical History: Cholecystectomy, Hysterectomy, Orthopedic Surgery Additional Past Surgical History / Comment(s): Eye surgery, oophrectomy, left adrenal gland removed, EGD, colonoscopy, left knee surgery. Past Anesthesia/Blood Transfusion Reactions: No Reported Reaction, Motion Sickness Smoking Status: Never smoker - Past Family History Mother Family Medical History: Cancer Additional Family Medical History / Comment(s): Lung cancer. Medications and Allergies Home Medications Medication Instructions Recorded Confirmed Type Ferrous Sulfate [Feosol] 325 mg PO DAILY 08/13/19 08/06/24 History Hydrocodone/Acetaminophen [[place] 1 each PO Q6HR PRN #21 tab 08/14/19 08/06/24 Rx 5-325] Citalopram Hydrobromide 40 mg PO QAM 08/06/24 08/06/24 History [Citalopram HBr] Elderberry Fruit [Elderberry] 350 mg PO DIRECTED 08/06/24 08/06/24 History Loratadine/Pseudoephedrine 1 tab PO QAM 08/06/24 08/06/24 History [Loratadine-D 24Hr Tablet] Mucinex(Unknown Dose) 1 tab PO DIRECTED 08/06/24 08/06/24 History Pantoprazole [Protonix] 40 mg PO QAM 08/06/24 08/06/24 History Allergies Allergy/AdvReac Type Severity Reaction Status Date / Time naproxen AdvReac GI Bleed Verified 08/06/24 14:23 Physical Examination - Hip left Gait: antalgic Tenderness with palpation: anterior Pain with motion: internal rotation and hip flexion ROM: flexion: 70 degrees ROM: internal rotation: 0 degrees (With pain) ROM: external rotation: 50 degrees Crepitus with motion: Yes Strength: extension: 5/5 Strength: abduction: 5/5 Tests: impingement tests: positive Results The patient is a well-developed well-nourished female approximately 5 foot 9, 300 pounds of endomorphic habitus. HEENT exam is nonfocal, neck is supple. She has limited passive motion of her left hip. She has an antalgic gait pattern. Her distal neurovascular exam appears intact in the left lower extremity. - Diagnostic results Hip x-ray: image reviewed (X-rays of the left hip obtained in the office show avascular necrosis involving the left femoral head with central collapse. 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 At this point she is quite symptomatic having progressive symptoms. A fter a thorough discussion she opts to proceed with surgery. We will plan to proceed with left total hip arthroplasty utilizing an anterior approach. Risks and benefits were discussed at length in layman's terms. We will institute DVT prophylaxis postoperatively.
[~2024-08-12 10:18] MED LIST changes: -DEXAMETHASONE SOD PHOSPHATE 10 MG/ML 1 ML VIAL IV ONE; -FAMOTIDINE 20 MG/2 ML VIAL IV PRN; +HYDROmorphone 0.5 MG/0.5 ML SYRINGE IVP PRN; -LACTATED RINGERS 1,000 ML IV SCH; +LIDOCAINE 1% (10MG/ML) FOR IV START INTRADERMA PRN; +MELOXICAM 7.5 MG TAB PO PRN; -MIDAZOLAM 2 MG/2 ML VIAL IV PRN; -ONDANSETRON 4 MG/2 ML VIAL IVP PRN; +TRANEXAMIC 1,000 MG/100ML-NACL 1,000 MG in SALINE 1 100ML.BAG IVPB PRN; -ceFAZolin 3 GM in SODIUM CHLORIDE 0.9% 100 ML IVPB ONE
[2024-08-12] MEDS: ACETAMINOPHEN TAB 500 MG TAB PO PRN (11:25)
[2024-08-12 11:49] LABS: Glucose,Whole Blood 96 mg/dL (70-110)
[2024-08-12] MEDS: LACTATED RINGERS 1,000 ML IV SCH (11:50)
[2024-08-12] MEDS: ONDANSETRON 4 MG/2 ML VIAL IVP ONE (11:51)
[2024-08-12] MEDS: DEXAMETHASONE SOD PHOSPHATE 4 MG/ML 1 ML VIAL IV ONE (11:51)
[2024-08-12] MEDS: FAMOTIDINE 20 MG/2 ML VIAL IV STA (11:56)
[2024-08-12] MEDS: IV FLUID CONTINUATION 1,000 ML IV ONE (11:57)
[2024-08-12] MEDS ORDERED: ALBUTEROL HFA INHALER INHALATION ONE (12:34)
[2024-08-12] MEDS ORDERED: fentaNYL (PF) 50 MCG/ML 2 ML AMP ONE (12:34)
[2024-08-12] MEDS ORDERED: LIDOCAINE 1% INJ 10MG/ML (20 ML MDV) ONE (12:34)
[2024-08-12] MEDS ORDERED: SUCCINYLCHOLINE CHLORIDE 200 MG/10 ML VIAL IV ONE (12:34)
[2024-08-12] MEDS ORDERED: ROPIVACAINE 5 MG/ML 30 ML VIAL ONE (12:34)
[2024-08-12] MEDS ORDERED: DEXAMETHASONE SOD PHOSPHATE 4 MG/ML 1 ML VIAL ONE (12:34)
[2024-08-12] MEDS ORDERED: GLYCOPYRROLATE 0.2 MG/ML 2 ML VIAL ONE (12:34)
[2024-08-12] MEDS ORDERED: TRANEXAMIC 1,000 MG/100ML-NACL PREMIX BAG ONE (12:34)
[2024-08-12] MEDS ORDERED: NEOSTIGMINE 1 MG/ML 10 ML VIAL ONE (12:34)
[2024-08-12] MEDS ORDERED: ROCURONIUM 10 MG/ML (5 ML VIAL) IV ONE (12:34)
[2024-08-12] MEDS ORDERED: PROPOFOL 10 MG/ML 20 ML VIAL IV ONE (12:34)
[2024-08-12] MEDS ORDERED: HYDROmorphone (PF) 1 MG/ML ONE (12:34)
[2024-08-12] MEDS: MIDAZOLAM 2 MG/2 ML VIAL IV ONE (12:37)
--- NOTE | 2024-08-12 12:37 | P.ANPRN ---
Procedure Note - Anesthesia - Nerve Block Performed Left Quoc Single Time Out Performed: Yes Date of Procedure: 08/12/24 Procedure Start Time: 12: Procedure Stop Time: : Location of Patient: PreOp Indication: Acute Post-Operative Pain, Analgesia, Requested by Surgeon Sedation Type: Sedate with meaningful contact maintained Preparation: Sterile Prep Position: Supine Catheter: None Needle Types: Pajunk Needle Gauge: 21 Ultrasound used to visualize needle placement: Yes Ultrasound used to observe medication spread: Yes Injectate: 0.5% Ropivacaine (see comment for volume) (Ropiv 20ml+Decadron 4mg . AttemptX1.) Blood Aspirated: No Pain Paresthesia on Injection Noted: No Resistance on Injection: Normal Image Stored and Saved: Yes Events: Uneventful and Well Tolerated
[2024-08-12] MEDS: ceFAZolin 3 GM in SODIUM CHLORIDE 0.9% 100 ML IVPB PRN (12:38)
[2024-08-12] MEDS: ceFAZolin 3,000 MG in SODIUM CHLORIDE 0.9% IRRIGATIO 3,000 ML IRRIGATION ONE (13:11)
[2024-08-12] MEDS ORDERED: MAGNESIUM HYDROXIDE 2,400 MG/30 ML CUP PO PRN (14:40)
[2024-08-12] MEDS ORDERED: NALOXONE 0.4 MG/ML 1 ML VIAL IV PRN (14:40)
[2024-08-12] MEDS ORDERED: ONDANSETRON 4 MG/2 ML VIAL IVP PRN (14:40)
[2024-08-12] MEDS ORDERED: HYDROcodone/APAP 5-325MG 1 EACH TAB PO PRN (14:40)
[2024-08-12] MEDS ORDERED: HYDROmorphone 0.5 MG/0.5 ML SYRINGE IVP PRN (14:40)
--- NOTE | 2024-08-12 15:09 | P.OP ---
Date of Procedure: 08/12/24 Preoperative Diagnosis: Left hip stage IV avascular necrosis Postoperative Diagnosis: Same Procedure(s) Performed: Left total hip arthroplastypress-fitanterior approach Implants: DePuy Corail size 13-125 degree press-fit collared femoral stem, 36+8.5 cobalt chrome femoral head, 52 mm [place] acetabular shell with neutral polyethylene liner, 6.5 mm x 30 mm cancellous screw. Anesthesia: JOLYNN regional Surgeon: Shaheen Troncoso Interface Designer #1: Antonio Diaz Estimated Blood Loss (ml): 300 Pathology: none sent Condition: stable Disposition: PACU Indications for Procedure: The patient is a 59-year-old female who presents with progressive left hip pain secondary to avascular necrosis. A discussion of the risks and benefits of operative intervention versus continued conservative measures was made with the patient. She opted to proceed with surgery. Operative risks include infection, neurovascular injury, development of blood clots, fracture, instability, leg length discrepancy, possible component loosening/failure and possible need for subsequent procedures was discussed. Informed consent was obtained. Operative Findings: As below Description of Procedure: The patient was brought to the operating room, and after induction of spinal anesthesia was placed supine on the Lissa table. Positioning was checked with fluoroscopy. The left hip was then prepped and draped in a normal fashion. A 12 cm incision was then made starting 2 fingerbreadths distal and 3 finger breaths posterior to the ASIS in line with the proximal femur. The skin was incised sharply. Subcutaneous tissues were divided sharply. Electrocautery was used for hemostasis. The fascia was split in line with skin incision. The interval between the sartorius and tensor fascia marcie was then bluntly developed. The posterior fascia was opened with electrocautery. The lateral circumflex vessels were identified and cauterized prior to sectioning. A retractor was placed along the superior femoral neck as well as the anterior acetabular rim. A wide capsulotomy was performed. The neck cut was then made at a 45 angle to the shaft approximately 1 1/2 cm above the level of the lesser trochanter. The head was extracted. Attention was then paid towards preparing the acetabular. Anterior and posterior retractors were placed. The remaining capsular labral tissue sharply debrided clearly defining the acetabular margins. I began reaming with a 47 mm reamer taking care to initially medialize then reaming at 45 of abduction and 20 of anteversion. Sequential reaming is performed up to 51 mm. A trial 52 mm acetabular shell was inserted in the same orientation and was fully seated. There was good rim fit and stability. Positioning was checked with fluoroscopy. The final 52 mm acetabular shell was inserted again at 45 of abduction and 20 of anteversion. This was fully seated. There was good rim fit and stability. A 6.5 x 30 mm posterior superior cancellous screw was used for additional fixation. Good purchase was obtained. Again fluoroscopy was used to check the adequacy of placement. A neutral polyethylene liner was gently impacted. Care was taken to avoid any soft tissue interposition. Pulsatile lavage was utilized. Attention was then paid towards preparing the proximal femur. The central region was cleared of soft tissue. A canal finder was used to find the femoral canal. Sequential broaching was performed up to size 13 taking care to lateralize proximally. A calcar mill was used to fashion the medial calcar. There was good rotational stability. A 125 degree neck along with a 36 mm +8 head was placed. The hip was gently reduced. Fluoroscopy was used to check the adequacy of positioning along with leg lengths. I felt both were good. The hip was gently dislocated. The trial components were removed. The final size 13 collared 125 degree press-fit femoral stem was inserted parallel to the posterior cortex. This was fully seated and there was good rotational stability. A 36 mm +8.5 head was placed. This was gently impacted. The hip was then gently reduced. Final fluoroscopic view showed adequate placement implant along with latter day of leg length. Stability was checked with 80 of external rotation and 60 of extension of the right hip. The wound was irrigated with sterile lavage. The fascia was closed with running 0 Vicryl suture. There was minimal drainage therefore a deep drain was not placed. The second dose of IV TXA was given. The subcutaneous tissues were reapproximated interrupted 2-0 Vicryl sutures. The skin was reapproximated with 3-0 subcuticular strata fix suture. Skin tape and adhesive was applied. A sterile dressing was applied. The patient was then awoken from sedation and t ransferred to recovery room in good condition. Blood loss was estimated at 300mL. No complications were incurred. Sponge and needle counts were correct at the end of the case. Antonio FARIAS assisted during the major components is case to include exposure, bone resection, implantation, and closure.
--- NOTE | 2024-08-12 15:24 | FL ---
EXAMINATION TYPE: FL guidance operating room, XR Hip Limited LT DATE OF EXAM: 08/12/2024 2:41 PM COMPARISON: Pre Operative Images if available both CT/MRI or plain film CLINICAL INDICATION: Female, 59 years old with history of Left Hip-Ant; TECHNIQUE: FL guidance operating room, XR Hip Limited LT, multiple fluoroscopic images provided for p rocedure. Total fluoroscopy time: 34 seconds Total submitted images to PACS: 6 DAP: 3.7826 mGym2 Gycm2 uGym2 cGycm2 or equivalent. FINDINGS: Fluoroscopic images during internal fixation/arthroplasty demonstrate fixation hardware in appropriat e position. Hardware appears intact. No immediate complication identified. IMPRESSION: 1. No evidence for intraoperative complication. 2. Please see the operative/procedural note for further details. [facility], , 08/12/2024 3:22 PM
[2024-08-12] MEDS: LACTATED RINGERS 1,000 ML IV ONE (15:42)
--- NOTE | 2024-08-12 16:05 | XR ---
EXAMINATION TYPE: XR Hip Limited LT DATE OF EXAM: 08/12/2024 3:58 PM CLINICAL INDICATION: Female, 59 years old with history of Status post hip surgery, assess surgical al ignment; [facility] COMPARISON: None. TECHNIQUE: XR Hip Limited LT; hip was examined in the frontal projections FINDINGS: Post arthroplasty changes, hardware is intact, alignment is appropriate. No evidence of fra cture. Postoperative changes of the soft tissues with subcutaneous gas. No evidence of any acute osse ous pathology or joint dislocation. IMPRESSION: Hip arthroplasty with hardware intact and in appropriate alignment. No acute fracture. [facility], , 08/12/2024 4:02 PM
[2024-08-12] MEDS: HYDROmorphone 1 MG/ML 1 ML SYRINGE IVP PRN (16:59)
[2024-08-12] MEDS: droPERidol 5 MG/2 ML VIAL IVP ONE (18:30)
[2024-08-12] MEDS: SENNOSIDES-DOCUSATE SODIUM 1 EACH TAB PO SCH (20:33)
--- NOTE | 2024-08-12 20:44 | P.CONS ---
History of Present Illness - Reason for Consult Consult date: 08/12/24 Medical management - History of Present Illness Patient is a 59-year-old female who has hypertension, COPD (not on home oxygen), anxiety, depression, GERD, osteoarthritis, EDWARD (with CPAP use at home), JESSICA that is status post left total hip arthroplasty for stage IV vascular necrosis of the femur. She has no new complaints at this time. She reported she has been able to micturate, passed flatus, has burping and ambulate with assistance but has not been able to have a bowel movement. She denies fever, sweats, chest pain, cough, shortness of breath, leg pain, abdominal pain, changes in vision, or focal weakness. Review of systems: Pertinent positives and negatives as discussed in HPI, a complete review of systems was performed and all other systems are negative. Physical examination: Vital signs reviewed General: non toxic, no distress, appears at stated age, on nasal cannula Derm: no unusual rashes/lesions, warm Head: atraumatic, normocephalic, symmetric Eyes: EOMI, anicteric sclera, pupils equal round reactive to light ENT: Nose and ears atraumatic Neck: No cervical lymphadenopathy, trachea midline, supple Mouth: no lip lesion, mucus membranes moist Cardiovascular: S1S2 reg, no murmur Lungs: CTA bilateral, no rhonchi, no rales, no accessory muscle use Abdominal: soft, nondistended, nontender to palpation, no guarding Ext: muscle strength 5 out of 5 in all 4 distal lower extremities grossly, no gross muscle atrophy, no contractures, positive dorsalis pedis pulse bilateral, no edema Neuro: CN II-XI grossly intact, no gross focal neuro deficits Psych: Alert, oriented, appropriate affect and mood Assessment/Plan: EDWARD (with CPAP use at home) Patient stable and asymptomatic. -Continue CPAP use -Supplemental oxygen as needed #. Iron deficiency anemia -Continue FeroSol -CBC at a.m. #. Chronic conditions: Hypertension, COPD (not on home oxygen), anxiety, depression, GERD, osteoarthritis, JESSICA -Resume home medications once reconciled #. Status post left total hip arthroplasty DVT prophylaxis and pain control be managed by primary surgical team We appreciate being part of this patient's care. Thank you for this consult. Past Medical History Past Medical History: GERD/Reflux Additional Past Medical History / Comment(s): Hx Covid, chronic Pneumonia. 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 Iron Deficiency Anemia. "I have always been anemic but in Jun 2024 hemoglobin was 4.8, had 4 blood transfusions and an iron infusion, discovered I had a bleeding stomach ulcer due to taking Naproxen". Hx hypertension before adrenal gland was removed. CPAP use. Mild hearing loss. History of Any Multi-Drug Resistant Organisms: None Reported Past Surgical History: Cholecystectomy, Hysterectomy Additional Past Surgical History / Comment(s): eye surgery, oophrectomy, complete hysterectomy Past Anesthesia/Blood Transfusion Reactions: No Reported Reaction, Motion Sickness Past Psychological History: Anxiety, Depression Additional Psychological History / Comment(s): Daughter in car accident. Smoking Status: Never smoker Past Alcohol Use History: Rare Past Drug Use History: None Reported - Past Family History Mother Family Medical History: Cancer Additional Family Medical History / Comment(s): Lung cancer. Medications and Allergies Home Medications Medication Instructions Recorded Confirmed Type Ferrous Sulfate [Feosol] 325 mg PO DAILY 08/13/19 08/12/24 History Hydrocodone/Acetaminophen [[place] 1 each PO Q6HR PRN #21 tab 08/14/19 08/12/24 Rx 5-325] Citalopram Hydrobromide 40 mg PO QAM 08/06/24 08/12/24 History [Citalopram HBr] Elderberry Fruit [Elderberry] 350 mg PO DIRECTED 08/06/24 08/12/24 History Loratadine/Pseudoephedrine 1 tab PO QAM 08/06/24 08/12/24 History [Loratadine-D 24Hr Tablet] Mucinex(Unknown Dose) 1 tab PO DIRECTED 08/06/24 08/12/24 History Pantoprazole [Protonix] 40 mg PO QAM 08/06/24 08/12/24 History Allergies Allergy/AdvReac Type Severity Reaction Status Date / Time naproxen AdvReac GI Bleed Verified 08/12/24 11:12 Physical Exam Vitals: Vital Signs Temp Pulse Pulse Resp BP Pulse Ox 08/12/24 16:17 87 16 143/84 95 08/12/24 16:01 88 16 139/84 95 08/12/24 15:46 88 16 132/86 95 08/12/24 15:33 87 16 129/77 95 08/12/24 15:17 95 16 127/85 96 08/12/24 15:02 100 F H 90 16 140/77 93 L 08/12/24 11:29 98.8 F 84 18 149/75 98 Intake and Output 08/12/24 08/12/24 08/12/24 06:59 14:59 22:59 Intake Total 1001 650 Output Total 300 Balance 701 650 Intake: IV 1001 450 Oral 200 Output: Estimated Blood Loss 300 Other: Weight 143.1 kg 143.1 kg Assessment and Plan Assessment: I have seen and evaluated the patient today. I Discussed the case with the resident and agree with the resident's findings I edited the assessment and plan as necessary as documented in the resident's note.
[2024-08-12] MEDS: HYDROcodone/APAP 7.5-325MG 1 EACH TAB PO PRN (22:08)
[2024-08-13] MEDS: hydrOXYzine pamoate 25 MG CAP PO PRN (01:36)
[2024-08-13 01:37] LABS: Glucose,Whole Blood 142 mg/dL (70-110)
[2024-08-13] MEDS: CITALOPRAM HYDROBROMIDE 20 MG TAB PO SCH (07:40)
[2024-08-13] MEDS: RIVAROXABAN 10 MG TAB PO SCH (07:40)
[2024-08-13] MEDS: FERROUS SULFATE 325 MG TAB PO SCH (07:40)
[2024-08-13 07:47] VITALS: BP 122/75; PULSE 87; RESP 18; TEMP 99.5
[2024-08-13 08:33] LABS: Basophils # (A) 0.02 X 10*3/uL (0.00-0.10); Basophils % (A) 0.2 %; Eosinophils # (A) 0.01 X 10*3/uL (0.04-0.35); Eosinophils % (A) 0.1 %; HCT 37.8 % (37.2-46.3); HGB 11.5 g/dL (12.0-15.0); Lymphocytes # (A) 0.89 X 10*3/uL (0.90-5.00); Lymphocytes % (A) 6.8 %; MCH 26.6 pg (27.0-32.0); MCHC 30.4 g/dL (32.0-37.0); MCV 87.3 FL (80.0-97.0); Mean Platelet Volume 10.2 FL (9.5-12.2); Monocytes # (A) 0.92 X 10*3/uL (0.20-1.00); NRBC Per 100 WBC 0 X 10*3/uL (0.00-0.01); Neutrophils # (A) 11.19 X 10*3/uL (1.80-7.70); Neutrophils % (A) 85.6 %; Platelet Count 240 X 10*3/uL (140-440); RBC 4.33 X 10*6/uL (4.10-5.20); RDW 17.6 % (11.5-14.5); WBC 13.07 X 10*3/uL (4.50-10.00)
--- NOTE | 2024-08-13 08:49 | P.DS ---
Providers Date of admission: 08/12/2024 Expected date of discharge: 08/13/24 Attending physician: Shaheen Troncsoo Consults: 08/12/24 14:40 Consult Physician Routine Consulting Provider: Rosalind Macario Consult Reason/Comments: medical management s/p direct anterior left total hip arthroplasty Do you want consulting provider notified?: Yes Primary care physician: [facility] Course: Date of admission: 08/12/2024 Date of discharge: 08/13/2024 Admission diagnosis: Left hip stage IV avascular necrosis Discharge diagnosis: Same Attending physician: Dr. Troncoso Surgical procedures: Direct anterior left total hip arthroplasty Brief history: Patient is a 59-year-old female with a history of Left hip stage IV avascular necrosis. At this point patient has failed conservative treatment measures and has opted to proceed with a elective direct anterior left total hip arthroplasty. Hospital course: Details of patient's surgery can be found in operative report. Patient tolerated the procedure well and was subsequently transported to orthopedic floor. Patient's orthopeidc and medical care was provided daily. Patient had daily laboratory tests performed for evaluation of overall blood counts. Patient had daily physical therapy to include strengthening range of motion as well as education with walker ambulation. Patient was treated with X arelto for their postoperative DVT prophylaxis during their inpatient stay. Patient was noted to have a relatively uneventful postoperative course. Patient reported satisfactory pain control with oral pain medications by postoperative day 1. Patient showed satisfactory progress with physical therapy. Patient moved steadily through the program and had no difficulty meeting the goals by postoperative day 1. Given patient's otherwise satisfactory course and having met physical therapy goals, plan is to discharge patient home with health services on postoperative day 1. Discharge condition/disposition: Patient will be discharged home with health services in stable condition. Discharge medications: Instructions are given on resumption of patient's normal daily medications per primary care recommendation, in addition patient will be prescribed Point Clear; senna; Eliquis 2.5 mg twice a day 2 weeks. Discharge instructions: 1. Wound care and infection precautions, keep incision dry and covered while showering, no lotions, creams, moisturizers. No soaking, tubs, pools, hottubs. Do not scrub over the incision. 2. Weight-bear as tolerated with walker / cane until follow-up. 3. Ice and elevate when necessary. Do not exceed 20 minutes per hour with ice pack. 4. Utilize compression sleeve until seen at first follow up appointment. 5. Visiting nursing care. 6. Home physical therapy. 7. Pain meds and anticoagulants per prescription. 8. Pain medication has potential to cause constipation. Increase oral fluid and fiber intake. Contact primary care provider if you have not had a bowel movement within 48 hours after discharge 9. No anti-inflammatory medication until discussed at first post operative visit, this including Motrin, Aleve, Mobic, Diclofenac. 10. Follow up in office at 2 weeks postop with Stephen Miller PA-C / Antonio Diaz PA-C 11. Follow up with your primary care doctor 7-10 days after discharge. 12. Contact [facility] with any questions, . Assessment: Left hip stage IV avascular necrosis Procedures: Direct anterior left total hip arthroplasty Patient Condition at Discharge: Good Plan - Discharge Summary Discharge Rx Participant: Yes New Discharge Prescriptions: New Apixaban [Eliquis] 2.5 mg PO BID #60 tab HYDROcodone/APAP 7.5-325MG [[place] Clear 7.5-325] 1 - 2 tab PO Q6HR PRN #32 tab PRN Reason: Pain Sennosides/Docusate Sodium [Senna Plus 8.6-50 mg Softgel] 1 each PO DAILY #20 capsule No Action Ferrous Sulfate [Feosol] 325 mg PO DAILY Hydrocodone/Acetaminophen [[place] 5-325] 1 each PO Q6HR PRN #21 tab PRN Reason: Pain Loratadine/Pseudoephedrine [Loratadine-D 24Hr Tablet] 1 tab PO QAM Citalopram Hydrobromide [Citalopram HBr] 40 mg PO QAM Pantoprazole [Protonix] 40 mg PO QAM Mucinex(Unknown Dose) 1 tab PO DIRECTED Elderberry Fruit [Elderberry] 350 mg PO DIRECTED Discharge Medication List Ferrous Sulfate [Feosol] 325 mg PO DAILY 08/13/19 [History] Hydrocodone/Acetaminophen [[place] 5-325] 1 each PO Q6HR PRN #21 tab 08/14/19 [Rx] Citalopram Hydrobromide [Citalopram HBr] 40 mg PO QAM 08/06/24 [History] Elderberry Fruit [Elderberry] 350 mg PO DIRECTED 08/06/24 [History] Loratadine/Pseudoephedrine [Loratadine-D 24Hr Tablet] 1 tab PO QAM 08/06/24 [History] Mucinex(Unknown Dose) 1 tab PO DIRECTED 08/06/24 [History] Pantoprazole [Protonix] 40 mg PO QAM 08/06/24 [History] Apixaban [Eliquis] 2.5 mg PO BID #60 tab 08/13/24 [Rx] HYDROcodone/APAP 7.5-325MG [[place] Clear 7.5-325] 1 - 2 tab PO Q6HR PRN #32 tab 08/13/24 [Rx] Sennosides/Docusate Sodium [Senna Plus 8.6-50 mg Softgel] 1 each PO DAILY #20 capsule 08/13/24 [Rx] Follow up Appointment(s)/Referral(s): Antonio Diaz, MELODY [PHYSICIAN DIPPING MACHINE OPERATOR] - 2 Weeks Patient Instructions/Handouts: Anterior Hip Replacement (GEN) Activity/Diet/Wound Care/Special Instructions: Orthopedic Discharge Instructions: 1. Wound care and infection precautions, keep incision dry and covered while showering, no lotions, creams, moisturizers. No soaking, pools, hot tubs. Do not scrub over incision. 2. Weight-bear as tolerated with walker / cane until follow-up. 3. Ice and elevate when necessary. Do not exceed 20 minutes per hour with ice pack. 4. Utilize compression sleeve until seen at first follow up appointment. 5. Pain meds and anticoagulants per prescription. 6. Pain medication has potential to cause constipation. Increase oral fluid and fiber intake. Contact primary care provider if you have not had a bowel movement within 48 hours after discharge. 7. No anti-inflammatory medication until discussed at first post operative visit, this including Motrin, Aleve, Mobic, Diclofenac. 8. Follow up in office at 2 weeks postop with Stephen Miller PA-C / Antonio Diaz PA-C 9. Follow up with your primary care doctor 7-10 days after discharge. 10. Contact [facility] with any questions, . Keep incision clean, dry, intact. While showering, cover fusion tape with Saran wrap. Keep fusion tape on until follow-up appointment in office in 2 weeks. Discharge Disposition: HOME WITH HOME HEALTH SERVICES
--- NOTE | 2024-08-13 08:59 | P.PN ---
Subjective Progress Note Date: 08/13/24 Principal diagnosis: Left hip stage IV avascular necrosis Patient seen at bedside this morning sitting up in chair with legs elevated dressing present over left hip. Patient says she is very walked up-and-down steps with therapy and walked around the room under her own power using walker. She says she has urinated several times since surgery yesterday without issue. She says the pain is controlled with oral medication. Patient says she does have a walker for home. Patient says she is hoping to go home today. Patient denies any other issues at this time. Objective - Vital Signs Vital signs: Vital Signs Temp 99.5 F 08/13/24 07:45 Pulse 87 08/13/24 07:45 Resp 18 08/13/24 07:45 BP 122/75 08/13/24 07:45 Pulse Ox 93 L 08/13/24 07:45 FiO2 Intake & Output 08/12/24 08/13/24 08/13/24 18:59 06:59 18:59 Intake Total 1651 540 Output Total 300 Balance 1351 540 Weight 143.1 kg Intake: IV 1451 Oral 200 540 Output: Estimated Blood Loss 300 Other: Voiding Method Toilet # Voids 3 - Exam Left hip: Incision is clean, dry, and intact. The exofin fusion tape is in good cond ition. There is minimal soft tissue swelling and ecchymosis surrounding the medial and lateral aspects of the incision. Calf is soft, no tenderness with palpation. Plantar flexion, dorsiflexion, EHL, FHL are intact. Sensory exam to light touch throughout the extremity is intact, dorsal pedis pulses 2+. - Labs CBC & Chem 7: 08/13/24 03:27 Labs: Abnormal Lab Results - Last 24 Hours (Table) 08/13/24 08/13/24 Range/Units 01:35 03:27 WBC 13.07 H (4.50-10.00) X 10*3/uL Hgb 11.5 L (12.0-15.0) g/dL MCH 26.6 L (27.0-32.0) pg MCHC 30.4 L (32.0-37.0) g/dL RDW 17.6 H (11.5-14.5) % Neutrophils # 11.19 H (1.80-7.70) X 10*3/uL Lymphocytes # 0.89 L (0.90-5.00) X 10*3/uL Eosinophils # 0.01 L (0.04-0.35) X 10*3/uL POC Glucose (mg/dL) 142 H (70-110) mg/dL Assessment and Plan Assessment: 1. Left hip stage IV avascular necrosis - Postop day 1 status post direct anterior left total hip arthroplasty Plan: 1. Left hip stage IV avascular necrosis - direct anterior left total hip arthroplasty performed yesterday, 08/12/2024. Patient stable at bedside this morning. Patient did do well with therapy and was able to go up-and-down status. Patient does have a walker for home. Discharge home today with health services. 2. Appreciate medical management 3. Pain management - [place] 4. DVT prophylaxis - Xarelto in hospital. Going home with Eliquis 2.5 mg twice a day 2 weeks 5. GI prophylaxis - senna 6. PT/OT - weightbearing as tolerated with walker 7. Encourage incentive spirometer use 8. Discharge planning - discharge home today with health services. Time with Patient: Less than 30
--- NOTE | 2024-08-13 11:25 | P.PN ---
Subjective Progress Note Date: 08/13/24 Patient seen this morning. She denies any acute complaints. Physical exam General examination - Alert and Oriented 3 in NAD Heart - + S1S2 no murmurs Lungs - Clear to auscultation Abdomen soft NT ND +ve BS, morbidly obese Extremities - No edema, left hip bandage intact and dry ACCOUNT MANAGEMENT ASSISTANT - Moving all 4 extremities spontaneously Psych - Calm and cooperative Assessment and plan Obstructive sleep apnea Continue with CPAP Stable Low-grade fever suspect due to atelectasis Encourage incentive spirometer use Discussed with the nurse to encourage the patient to use incentive spirometer Iron deficiency anemia Continue with ferrous sulfate 325 mg p.o. daily Anxiety and depression Continue citalopram 40 mg p.o. daily DVT prophylaxis: As per primary team I completed the medication reconciliation. Patient stable for discharge from medical standpoint. Objective - Vital Signs Vital signs: Vital Signs Temp 99.5 F 08/13/24 07:45 Pulse 87 08/13/24 07:45 Resp 18 08/13/24 07:45 BP 122/75 08/13/24 07:45 Pulse Ox 93 L 08/13/24 07:45 FiO2 Intake & Output 08/12/24 08/13/24 08/13/24 18:59 06:59 18:59 Intake Total 1651 540 118 Output Total 300 Balance 1351 540 118 Weight 143.1 kg Intake: IV 1451 Oral 200 540 118 Output: Estimated Blood Loss 300 Other: Voiding Method Toilet Toilet # Voids 3 - Labs CBC & Chem 7: 08/13/24 03:27 Labs: Abnormal Lab Results - Last 24 Hours (Table) 08/13/24 08/13/24 Range/Units 01:35 03:27 WBC 13.07 H (4.50-10.00) X 10*3/uL Hgb 11.5 L (12.0-15.0) g/dL MCH 26.6 L (27.0-32.0) pg MCHC 30.4 L (32.0-37.0) g/dL RDW 17.6 H (11.5-14.5) % Neutrophils # 11.19 H (1.80-7.70) X 10*3/uL Lymphocytes # 0.89 L (0.90-5.00) X 10*3/uL Eosinophils # 0.01 L (0.04-0.35) X 10*3/uL POC Glucose (mg/dL) 142 H (70-110) mg/dL
== END 2024-08-13 11:32 | disposition home health service (06) ==
LOC: OR 10:18 → 4SSUR 14:57 → OR 08-13 11:32
PROVIDERS: ATTEND Orthopaedic Surgery
DX: M87.852 Other osteonecrosis, left femur (principal); J44.9 Chronic obstructive pulmonary disease, unspecified; K21.9 Gastro-esophageal reflux disease without esophagitis; I10 Essential (primary) hypertension; E66.9 Obesity, unspecified; E24.9 Cushing's syndrome, unspecified; G47.33 Obstructive sleep apnea (adult) (pediatric); F41.9 Anxiety disorder, unspecified; F32.A Depression, unspecified; D50.9 Iron deficiency anemia, unspecified; Z79.899 Other long term (current) drug therapy; Z88.8 Allergy status to other drugs, medicaments and biological substances; Z68.42 Body mass index [BMI] 45.0-49.9, adult; Z80.1 Family history of malignant neoplasm of trachea, bronchus and lung
CPT/HCPCS: 27130; 97161; 64999; 85025; 73501; C1776; J2250; J0330; J1100; J2710; J0690 ×3; J2405; J2003; J3010; J3490; J1171 ×2; J2795; J2704; J1596; 64447